=== PATIENT | female | born 1970 | race Two or more races ===

== ENCOUNTER → 2020-10-01 | Emergency (ER) | payer OTHER | END | disposition left against medical advice (07) | LOC: ER 19:06 | DX: Z76.0 Encounter for issue of repeat prescription (principal); Z53.21 Procedure and treatment not carried out due to patient leaving prior to being seen by health care provider ==

== ENCOUNTER 2023-06-25 11:47 | Outpatient (CLI) | payer MEDICAID | END 2023-06-25 23:59 | disposition home or self-care (01) | LOC: RAD 11:47 | PROVIDERS: ATTEND Physician Assistant | DX: M48.061 Spinal stenosis, lumbar region without neurogenic claudication (principal); M16.0 Bilateral primary osteoarthritis of hip; M25.551 Pain in right hip; M54.50 Low back pain, unspecified | CPT/HCPCS: 72110; 73522 ==